=== PATIENT | male | born 1995 | race Caucasian/White ===

== ENCOUNTER 2025-02-28 08:44 | Emergency (ER) | payer OTHER ==
[~2025-02-28] VITALS: Ht 172.7 cm; Wt 87.0 kg
[2025-02-28 09:13] VITALS: O2SAT 98
[2025-02-28] MEDS: KETOROLAC 15MG/ML VIAL IV ONE (10:34)
[2025-02-28] MEDS: TETANUS, DIPHTHERIA, PERTUSSIS VAC/PF 0.5ML (>10YR OLD) IM ONE (10:45)
[2025-02-28] MEDS ORDERED: ACET-2708 MT (11:22)
[2025-02-28] MEDS ORDERED: IBUP-2029 MT (11:22)
[2025-02-28 11:32] VITALS: BP 132/98; PULSE 79; RESP 20; TEMP 36.9; O2SAT 99
== END 2025-02-28 11:33 | disposition home or self-care (01) ==
LOC: ER 08:44
DX: S09.90XA Unspecified injury of head, initial encounter (principal); M54.2 Cervicalgia; Y04.0XXA Assault by unarmed brawl or fight, initial encounter; Y93.89 Activity, other specified; Y92.89 Other specified places as the place of occurrence of the external cause; Y99.8 Other external cause status
CPT/HCPCS: 99285; 70450; 96374; 70486; 72125; 90715; 90471; J1885